=== PATIENT | male | born 1945 | race Caucasian/White ===

== ENCOUNTER 2017-10-14 07:40 | Emergency (ER) | payer OTHER ==
[~2017-10-14] VITALS: Ht 172.7 cm; Wt 95.2 kg
--- OUTSIDE RECORDS SUMMARY | ~2017-10-14 | XMS | Clinical Summary ---
Demographics + + + | Address | [address] [place] [address] | | | [place] [address] | + + + | Home Phone | | + + + | Preferred Language | Unknown | + + + | Marital Status | Single | + + + | Moravian Affiliation | Unknown | + + + | Race | Unknown | + + + | Ethnic Group | Other Race | + + + Author + + + | Author | [facility] | + + + | Organization | [facility] | + + + | Address | Unknown | + + + | Phone | Unavailable | + + + Care Team Providers + +------+ + | Care Corporate General Manager Name | Role | Phone | + +------+ + PP | Unavailable | + +------+ + Source Comments JES is fully live on both [facility] and [facility] Allergies Not on File Current Medications Not on file Active Problems Not on file Social History + +-------+ +--------+------+ | Tobacco Use | Types | Packs/Day | Years | Date | | | | | Used | | + +-------+ +--------+------+ | Never Assessed | | | | | + +-------+ +--------+------+ + + + | Sex Assigned at | Date Recorded | | | | + + + | Not on file | | + + + Plan of Treatment Not on file Results Not on filefrom Last 3 Months Insurance + +--------+ +--------+-------+---------+ | Payer | Benefi | Subscriber | Type | Phone | Address | | | t Plan | ID | | | | | | / | | | | | | | Group | | | | | + +--------+ +--------+-------+---------+ | COMMERCIAL GROUP | COMMER | xxxxxxxx | Indemn | | | | | CIAL | | ity | | | | | GROUP | | | | | + +--------+ +--------+-------+---------+ + +--------+ +--------+ + + | Guarantor Name | Accoun | Relation to | Date | Phone | Billing Address | | | t Type | Patient | of | | | | | | | | | | + +--------+ +--------+ + + | BASSAM CRANDALL | Person | Self [birth year] Home: | [address] [place] [address] | | | al/Fam | | 1946 | [phone] | [place] [id number] | | | anali | | | [phone] | | + +--------+ +--------+ + +"
--- OUTSIDE RECORDS SUMMARY | ~2017-10-14 | XMS | Clinical Summary ---
Demographics + + + | Address | [address] [place] [address] | | | [place] [address] | + + + | Home Phone | | + + + | Preferred Language | Unknown | + + + | Marital Status | Single | + + + | Faith Affiliation | Unknown | + + + [...] Team Providers + +------+ + | Care Peace Officer Name | Role | Phone | + +------+ + PP | Unavailable | + +------+ + Source Comments JES is fully live on both [facility] and [facility] InPatient.[facility] Allergies Not on File Current Medications [...] | Self | [birth year] | Home: | [address] [place] [address] | | | al/Fam | | 1946 | [phone] | [place] [id number] | | | anali | | | [phone] | | + +--------+ +--------+ + +"
[~2017-10-14 07:40] MED LIST: ASPIRIN EC81 MG PO; COZAAR50 MG PO; FLOMAX0.4 MG PO; HYDROCHLOROTHIA25 MG PO; METOPROLOL SUCC50 MG PO; PRILOSEC20 MG PO; SIMVASTATIN20 MG PO; SYNTHROID88 MCG PO; TRUSOPT10 ML OPTH; ULTRAM50 MG PO; XALATAN2.5 ML OU
[2017-10-14] MEDS ORDERED: ULTRAM50 MG PO (09:14)
== END 2017-10-14 09:25 | disposition home or self-care (01) ==
LOC: ED 07:40
DX: G89.18 Other acute postprocedural pain (principal); M25.562 Pain in left knee; Z87.891 Personal history of nicotine dependence; Z88.2 Allergy status to sulfonamides; Z79.899 Other long term (current) drug therapy; Z79.82 Long term (current) use of aspirin
CPT/HCPCS: 85025; 85610; 93971; 99284